=== PATIENT | female | born 1975 | race Caucasian/White ===

== ENCOUNTER 2018-06-28 22:36 | Emergency (ER) | payer MEDICAID ==
[2018-06-29] MEDS: morphine 2 MG INJ IV (01:53)
[2018-06-29] MEDS: ONDANSETRON 4 MG INJ IV (01:53)
[2018-06-29] MEDS: KETOROLAC 30 MG INJ IV (01:53)
== END 2018-06-29 03:36 | disposition home or self-care (01) ==
LOC: FTE 06-29 03:36
DX: G43.909 Migraine, unspecified, not intractable, without status migrainosus (principal); I10 Essential (primary) hypertension
CPT/HCPCS: 81025; 96374; 96375; 99284-25